=== PATIENT | female | born 1945 | race Caucasian/White ===

== ENCOUNTER 2017-08-07 20:39 | Emergency (ER) | payer MEDICARE, BC ==
[~2017-08-07] VITALS: Ht 142.2 cm; Wt 62.2 kg
[~2017-08-07 20:39] MED LIST: CALCIUM 500+D500 + PO; HYDROXYCHLOR200 MG PO; LIPITOR20 MG PO; LISINOPRIL40 MG PO; MAXZIDE-25MG1 COMBO PO; PREVACID30 M1 PO; SIMVASTATIN20 MG PO; TENORMIN50 MG PO
[2017-08-07] MEDS ORDERED: XANAX XR0.5 MG PO (20:55)
[2017-08-07] MEDS ORDERED: DELTASONE20 MG PO (21:11)
[2017-08-07 22:10] VITALS: BP 180/92
== END 2017-08-07 22:10 | disposition home or self-care (01) ==
LOC: ED 20:39
DX: L50.0 Allergic urticaria (principal); T78.49XA Other allergy, initial encounter

== ENCOUNTER 2018-08-30 07:00 | Day surgery (SDC) | payer MEDICARE, BC ==
[~2018-08-30] VITALS: Ht 142.2 cm; Wt 62.1 kg
[~2018-08-30 07:00] MED LIST changes: +AMLODIPINE5 MG PO; +CETIRIZINE10 MG PO; +CLONIDINE0.1 MG PO; +COLESTID1 GM PO; +DELTASONE20 MG PO; +HYDROXYCHLOR200 M1 PO; +LOPRESSOR50 M1 PO; +VITAMIN D50000 UNIT PO; +XANAX XR0.5 MG PO; +ZOCOR20 M1 PO
[2018-08-30] MEDS ORDERED: REGLAN10 MG PO (09:27)
[2018-08-30] MEDS ORDERED: PROTONIX40 M2 PO (09:27)
[2018-08-30 09:42] VITALS: BP 188/74
== END 2018-08-30 10:05 | disposition home or self-care (01) ==
LOC: ENDO 07:00 → ORM 08:30 → ENDO 08:30
PROVIDERS: ATTEND Surgery
PROC: 0DJ08ZZ Inspection of Upper Intestinal Tract, Via Natural or Artificial Opening Endoscopic (ICD-10-PCS; principal; 2018-08-30)
DX: K31.84 Gastroparesis (principal)

== ENCOUNTER 2018-09-06 07:13 | Day surgery (SDC) | payer MEDICARE, BC ==
[~2018-09-06] VITALS: Ht 142.2 cm; Wt 59.9 kg
[~2018-09-06 07:13] MED LIST changes: +PROTONIX40 M2 PO; +REGLAN10 MG PO
[2018-09-06 09:57] VITALS: BP 180/70
[2018-09-06] MEDS ORDERED: REGLAN10 MG PO (10:01)
== END 2018-09-06 10:24 | disposition home or self-care (01) ==
LOC: ENDO 07:13 → ORM 08:40 → ENDO 10:24 → ORM 11:00
PROVIDERS: ATTEND Surgery
PROC: 0DJ08ZZ Inspection of Upper Intestinal Tract, Via Natural or Artificial Opening Endoscopic (ICD-10-PCS; principal; 2018-09-06)
DX: K31.84 Gastroparesis (principal); K44.9 Diaphragmatic hernia without obstruction or gangrene; K58.9 Irritable bowel syndrome, unspecified

== ENCOUNTER 2018-12-06 19:42 | Emergency (ER) | payer MEDICARE, BC ==
[~2018-12-06] VITALS: Ht 142.2 cm; Wt 68.0 kg
[2018-12-06] MEDS ORDERED: PREDNISONE50 MG PO (20:08)
[2018-12-06 20:23] VITALS: BP 178/83
== END 2018-12-06 20:35 | disposition home or self-care (01) ==
LOC: ED 19:42
DX: L56.8 Other specified acute skin changes due to ultraviolet radiation (principal); T36.4X5A Adverse effect of tetracyclines, initial encounter; I12.9 Hypertensive chronic kidney disease with stage 1 through stage 4 chronic kidney disease, or unspecified chronic kidney disease; N18.3 Chronic kidney disease, stage 3 (moderate)

== ENCOUNTER 2020-07-29 08:45 | Inpatient (IN) | payer MEDICARE, BC ==
[~2020-07-29] VITALS: Ht 142.2 cm; Wt 63.0 kg
[~2020-07-29 08:45] MED LIST changes: +PREDNISONE50 MG PO
[2020-07-29] MEDS ORDERED: FUROSEMIDE20 MG PO (09:05)
[2020-07-29] MEDS ORDERED: HYDROXYCHLOR200 M1 PO (09:05)
[2020-07-29] MEDS ORDERED: BIOTIN5 MG PO (09:07)
[2020-07-29] MEDS ORDERED: MULTI VIT PO (09:07)
[2020-07-29 09:45] LABS: ALBUMIN 3.6 g/dL (3.2-5.0); BILIRUBIN, TOTAL 0.6 mg/dL (0.0-1.4); CREATININE 1.6 mg/dL (0.5-1.0); IMMATURE GRANULOCYTES 0.8 % (0.0-5.0); MEAN CELL VOLUME 87.8 fL CALC (80.0-100.0); NEUT# 12.82 thou/uL (2.00-7.15); RED BLOOD COUNT 3.93 mill/uL (4.20-5.60); RED CELL DISTRI WIDTH 13.6 % (11.5-15.5); TOTAL PROTEIN 6.6 g/dL (6.3-8.2)
[2020-07-29 09:47] LABS: HEMATOCRIT 34.5 % (37.0-47.0); HEMOGLOBIN 11.4 g/dl (12.0-16.0)
[2020-07-29 10:16] LABS: URINE BILIRUBIN - DIPSTICK NEGATIVE (NEGATIVE); URINE BLOOD DIPSTICK LARGE (NEGATIVE); URINE COLOR YELLOW; URINE GLUCOSE - DIPSTICK NEGATIVE (NEGATIVE); URINE KETONE NEGATIVE (NEGATIVE); URINE PROTEIN - DIPSTICK 100 mg/dL (NEG-TRACE); URINE UROBILINOGEN - DIPSTICK 0.2 E.U./dL (0.2)
[2020-07-29 10:27] LABS: URINE BACTERIA MANY hpf; URINE EPITHELIAL CELLS MODERATE EPI/hpf (0-FEW); URINE LEUK ESTERASE SMALL (NEGATIVE); URINE NITRITE - DIPSTICK POSITIVE (Negative); URINE RBC 25-50 RBC/hpf (0-5)
[2020-07-29] MEDS ORDERED: ATENOLOL50 MG PO (11:14)
[2020-07-29 12:41] VITALS: BP 116/51
[2020-07-29 15:20] VITALS: BP 102/52
[2020-07-29 19:00] VITALS: BP 153/59
[2020-07-30] VITALS (7 sets, daily range): BP systolic 118–169; BP diastolic 51–78
[2020-07-30 05:46] LABS: HEMATOCRIT 34.1 % (37.0-47.0); HEMOGLOBIN 10.6 g/dl (12.0-16.0); MEAN CELL VOLUME 90.9 fL CALC (80.0-100.0); MEAN CORPUSCULAR HGB 28.3 pG CALC (26.0-32.0); MEAN CORPUSCULAR HGB CONC 31.1 g/dL CAL (32.0-36.0); RED BLOOD COUNT 3.75 mill/uL (4.20-5.60); RED CELL DISTRI WIDTH 13.8 % (11.5-15.5)
[2020-07-30 06:11] LABS: CREATININE 1.2 mg/dL (0.5-1.0); MAGNESIUM 2.3 mg/dL (1.6-2.3); POTASSIUM 4.3 mmol/l (3.5-5.1)
[2020-07-31] VITALS (13 sets, daily range): BP systolic 97–135; BP diastolic 47–65
[2020-07-31 05:55] LABS: IMMATURE GRANULOCYTES 1.1 % (0.0-5.0); MEAN CELL VOLUME 91.7 fL CALC (80.0-100.0); MEAN CORPUSCULAR HGB 28.7 pG CALC (26.0-32.0); MEAN CORPUSCULAR HGB CONC 31.3 g/dL CAL (32.0-36.0); NEUT# 14.23 thou/uL (2.00-7.15); RED BLOOD COUNT 4.57 mill/uL (4.20-5.60); RED CELL DISTRI WIDTH 14.2 % (11.5-15.5)
[2020-07-31 05:59] LABS: HEMATOCRIT 41.9 % (37.0-47.0); HEMOGLOBIN 13.1 g/dl (12.0-16.0)
[2020-07-31 06:02] LABS: ALBUMIN 3.6 g/dL (3.2-5.0); ANION GAP 18 (6-22 (CALC)); BILIRUBIN, TOTAL 0.5 mg/dL (0.0-1.4); BUN 14 mg/dL (8-23); BUN/CREATININE RATIO 15 (12-20 (CALC)); CARBON DIOXIDE 21 mmol/l (22-30); CHLORIDE 105 mmol/l (95-108); GFR 54 ML/MIN (>=60 (CALC)); GFR FOR AFR.AMER. > 60 ML/MIN (>=60 (CALC)); POTASSIUM 4.1 mmol/l (3.5-5.1); SODIUM 140 mmol/l (137-146); TOTAL PROTEIN 6.7 g/dL (6.3-8.2)
[2020-07-31 06:03] LABS: ALKALINE PHOSPHATASE 150 u/l (38-126); SGOT/AST 59 u/l (9-36)
[2020-08-01] VITALS (12 sets, daily range): BP systolic 103–150; BP diastolic 51–74
[2020-08-01 05:33] LABS: MEAN CELL VOLUME 88.1 fL CALC (80.0-100.0); MEAN CORPUSCULAR HGB 28.5 pG CALC (26.0-32.0); MEAN CORPUSCULAR HGB CONC 32.3 g/dL CAL (32.0-36.0); RED BLOOD COUNT 3.62 mill/uL (4.20-5.60)
[2020-08-01 05:46] LABS: HEMATOCRIT 31.9 % (37.0-47.0); HEMOGLOBIN 10.3 g/dl (12.0-16.0)
[2020-08-01 05:50] LABS: ANION GAP 9 (6-22 (CALC)); BUN 12 mg/dL (8-23); BUN/CREATININE RATIO 13 (12-20 (CALC)); CARBON DIOXIDE 28 mmol/l (22-30); CHLORIDE 101 mmol/l (95-108); CREATININE 0.9 mg/dL (0.5-1.0); GFR > 60 ML/MIN (>=60 (CALC)); GFR FOR AFR.AMER. > 60 ML/MIN (>=60 (CALC)); POTASSIUM 3.6 mmol/l (3.5-5.1); SODIUM 134 mmol/l (137-146)
[2020-08-02 00:02] VITALS: BP 136/62
[2020-08-02 04:00] VITALS: BP 140/66
[2020-08-02 07:20] VITALS: BP 135/72
[2020-08-02 10:30] VITALS: BP 125/64
[2020-08-02] MEDS ORDERED: CIPROFLOXACN500 MG PO (11:17)
== END 2020-08-02 12:55 | disposition home or self-care (01) | DRG 871 ==
LOC: ED 08:45 → ED-I 09:50 → ED 10:30 → MS2 10:31 → ICU 07-31 05:00 → MS2 08-01 13:49
PROVIDERS: Family Medicine; Nurse Practitioner; ADMIT Internal Medicine; ATTEND Internal Medicine
PROC: 5A09357 Assistance with Respiratory Ventilation, Less than 24 Consecutive Hours, Continuous Positive Airway Pressure (ICD-10-PCS; principal; 2020-07-31)
DX: A41.51 Sepsis due to Escherichia coli [E. coli] (principal); J18.9 Pneumonia, unspecified organism; N39.0 Urinary tract infection, site not specified; E87.1 Hypo-osmolality and hyponatremia; I13.0 Hypertensive heart and chronic kidney disease with heart failure and stage 1 through stage 4 chronic kidney disease, or unspecified chronic kidney disease; R09.02 Hypoxemia; Z96.651 Presence of right artificial knee joint; I50.9 Heart failure, unspecified; N18.30 Chronic kidney disease, stage 3 unspecified; M12.30 Palindromic rheumatism, unspecified site; K31.84 Gastroparesis; E78.5 Hyperlipidemia, unspecified; F41.9 Anxiety disorder, unspecified; M81.0 Age-related osteoporosis without current pathological fracture; B96.20 Unspecified Escherichia coli [E. coli] as the cause of diseases classified elsewhere; Z20.822 Contact with and (suspected) exposure to COVID-19; Z79.899 Other long term (current) drug therapy; Z88.1 Allergy status to other antibiotic agents; Z88.2 Allergy status to sulfonamides; Z96.642 Presence of left artificial hip joint
CPT/HCPCS: G0378

== ENCOUNTER 2022-07-04 13:49 | Emergency (ER) | payer MEDICARE, BC ==
[~2022-07-04] VITALS: Ht 142.2 cm; Wt 60.0 kg
[~2022-07-04 13:49] MED LIST changes: +ATENOLOL50 MG PO; +BIOTIN5 MG PO; +CIPROFLOXACN500 MG PO; +FUROSEMIDE20 MG PO; +MULTI VIT PO
[2022-07-04 13:59] VITALS: BP 144/66
[2022-07-04 14:23] LABS: HEMATOCRIT 40.3 % (37.0-47.0); HEMOGLOBIN 13.3 g/dl (12.0-16.0); IMMATURE GRANULOCYTES 0.1 % (0.0-5.0); MEAN CELL VOLUME 90.4 fL CALC (80.0-100.0); MEAN CORPUSCULAR HGB 29.8 pG CALC (26.0-32.0); NEUT# 4.67 thou/uL (2.00-7.15); RED BLOOD COUNT 4.46 mill/uL (4.20-5.60); RED CELL DISTRI WIDTH 12.9 % (11.5-15.5)
[2022-07-04 14:30] LABS: ALBUMIN 4.7 g/dL (3.2-5.0); BILIRUBIN, TOTAL 0.5 mg/dL (0.0-1.4); CREATININE 1.9 mg/dL (0.5-1.0); POTASSIUM 3.9 mmol/l (3.5-5.1); TOTAL PROTEIN 8.4 g/dL (6.3-8.2)
[2022-07-04 15:11] VITALS: BP 144/66
== END 2022-07-04 15:33 | disposition home or self-care (01) ==
LOC: ED 13:49
PROVIDERS: Family Medicine
DX: S00.03XA Contusion of scalp, initial encounter (principal); I12.9 Hypertensive chronic kidney disease with stage 1 through stage 4 chronic kidney disease, or unspecified chronic kidney disease; N18.30 Chronic kidney disease, stage 3 unspecified; M12.30 Palindromic rheumatism, unspecified site; W19.XXXA Unspecified fall, initial encounter; Y92.009 Unspecified place in unspecified non-institutional (private) residence as the place of occurrence of the external cause

== ENCOUNTER 2022-11-30 15:34 | Inpatient (IN) | payer MEDICARE, BC ==
[2022-11-30] VITALS (15 sets, daily range): BP systolic 84–136; BP diastolic 49–81
[~2022-11-30] VITALS: Ht 142.2 cm; Wt 63.0 kg
[2022-11-30 16:27] LABS: BASO% 1.3 % (0-3); EOS% 8.9 % (0-8); IMMATURE GRANULOCYTES 0.4 % (0.0-5.0); LYMPH% 24.9 % (15-41); MEAN CELL VOLUME 86.8 fL CALC (80.0-100.0); MEAN CORPUSCULAR HGB 27.9 pG CALC (26.0-32.0); MEAN CORPUSCULAR HGB CONC 32.1 g/dL CAL (32.0-36.0); MONO% 14.4 % (2-13); NEUT# 4.46 thou/uL (2.00-7.15); NEUT% 50.1 % (42-76); RED BLOOD COUNT 3.41 mill/uL (4.20-5.60); RED CELL DISTRI WIDTH 14.3 % (11.5-15.5)
[2022-11-30 16:31] LABS: HEMATOCRIT 29.6 % (37.0-47.0); HEMOGLOBIN 9.5 g/dl (12.0-16.0)
[2022-11-30 16:37] LABS: ALBUMIN 3.4 g/dL (3.2-5.0); CREATININE 1.5 mg/dL (0.5-1.0); POTASSIUM 4.1 mmol/l (3.5-5.1); TOTAL PROTEIN 6.3 g/dL (6.3-8.2)
[2022-11-30 16:38] LABS: BILIRUBIN, TOTAL 0.4 mg/dL (0.02-1.3)
[2022-11-30 18:04] LABS: URINE BLOOD DIPSTICK NEGATIVE (NEGATIVE); URINE COLOR YELLOW; URINE GLUCOSE - DIPSTICK NEGATIVE (NEGATIVE); URINE KETONE NEGATIVE (NEGATIVE); URINE LEUK ESTERASE NEGATIVE (NEGATIVE); URINE PROTEIN - DIPSTICK NEGATIVE (NEG-TRACE); URINE UROBILINOGEN - DIPSTICK 0.2 E.U./dL (0.2)
[2022-11-30 18:05] LABS: URINE NITRITE - DIPSTICK NEGATIVE (Negative)
[2022-11-30] MEDS ORDERED: NIFEDIPINE60 MG PO (22:16)
[2022-11-30] MEDS ORDERED: HYDRALAZINE HYD25 MG PO (22:17)
[2022-11-30] MEDS ORDERED: CYMBALTA30 MG PO (22:18)
[2022-11-30] MEDS ORDERED: SIMVASTATIN20 M1 PO (22:19)
[2022-12-01 00:02] VITALS: BP 145/55
[2022-12-01 04:38] VITALS: BP 138/63
[2022-12-01 06:49] VITALS: BP 150/54
[2022-12-01 09:23] LABS: BASO% 0.9 % (0-3); EOS% 13.5 % (0-8); HEMATOCRIT 31.3 % (37.0-47.0); IMMATURE GRANULOCYTES 0.6 % (0.0-5.0); LYMPH% 18.5 % (15-41); MEAN CELL VOLUME 87.9 fL CALC (80.0-100.0); MEAN CORPUSCULAR HGB 28.1 pG CALC (26.0-32.0); MEAN CORPUSCULAR HGB CONC 31.9 g/dL CAL (32.0-36.0); MONO% 13.3 % (2-13); NEUT# 3.52 thou/uL (2.00-7.15); NEUT% 53.2 % (42-76); RED BLOOD COUNT 3.56 mill/uL (4.20-5.60); RED CELL DISTRI WIDTH 14.2 % (11.5-15.5)
[2022-12-01 09:41] LABS: ALBUMIN 3.2 g/dL (3.2-5.0); CREATININE 1.3 mg/dL (0.5-1.0); TOTAL PROTEIN 5.9 g/dL (6.3-8.2)
[2022-12-01 09:42] LABS: BILIRUBIN, TOTAL 0.2 mg/dL (0.02-1.3)
[2022-12-01 10:23] VITALS: BP 152/58
[2022-12-01] MEDS ORDERED: FERROUS SULFAT325 MG PO (10:25)
[2022-12-01] MEDS ORDERED: COLESTID1 GM PO (10:27)
[2022-12-01 11:58] LABS: URINE BILIRUBIN - DIPSTICK NEGATIVE (NEGATIVE)
[2022-12-01 16:13] VITALS: BP 148/68
[2022-12-01 20:39] VITALS: BP 125/54
[2022-12-02 00:08] VITALS: BP 125/60
[2022-12-02 03:40] VITALS: BP 127/62
[2022-12-02 05:45] LABS: ALBUMIN 3.5 g/dL (3.2-5.0); BILIRUBIN, TOTAL 0.2 mg/dL (0.02-1.3); CREATININE 1.2 mg/dL (0.5-1.0); MAGNESIUM 2.1 mg/dL (1.6-2.3); TOTAL PROTEIN 6.5 g/dL (6.3-8.2)
[2022-12-02 05:47] LABS: POTASSIUM 4.1 mmol/l (3.5-5.1)
[2022-12-02 05:57] LABS: BASO% 1.4 % (0-3); EOS% 13.6 % (0-8); HEMATOCRIT 33.8 % (37.0-47.0); HEMOGLOBIN 10.7 g/dl (12.0-16.0); IMMATURE GRANULOCYTES 0.7 % (0.0-5.0); LYMPH% 24.7 % (15-41); MEAN CELL VOLUME 88.5 fL CALC (80.0-100.0); MEAN CORPUSCULAR HGB CONC 31.7 g/dL CAL (32.0-36.0); MONO% 11.5 % (2-13); NEUT# 4.1 thou/uL (2.00-7.15); NEUT% 48.1 % (42-76); RED BLOOD COUNT 3.82 mill/uL (4.20-5.60)
[2022-12-02 06:58] VITALS: BP 147/67
[2022-12-02 11:05] VITALS: BP 146/64
[2022-12-02] MEDS ORDERED: ASPIRIN REGULA325 M1 PO (11:06)
[2022-12-02] MEDS ORDERED: DOXYCYCLINE100 MG PO (11:10)
[2022-12-02] MEDS ORDERED: LASIX 20 MG TAB20 MG PO (11:11)
== END 2022-12-02 14:19 | disposition home health service (06) | DRG 193 ==
LOC: ED 15:34 → ED-I 18:51 → ED 19:05 → MS2 19:06
PROVIDERS: Family Medicine; Nurse Practitioner Family; ADMIT Internal Medicine; ATTEND Internal Medicine
DX: J18.9 Pneumonia, unspecified organism (principal); I50.31 Acute diastolic (congestive) heart failure; I13.0 Hypertensive heart and chronic kidney disease with heart failure and stage 1 through stage 4 chronic kidney disease, or unspecified chronic kidney disease; N18.30 Chronic kidney disease, stage 3 unspecified; I08.3 Combined rheumatic disorders of mitral, aortic and tricuspid valves; E78.5 Hyperlipidemia, unspecified; I49.3 Ventricular premature depolarization; I49.1 Atrial premature depolarization; I87.2 Venous insufficiency (chronic) (peripheral); F41.9 Anxiety disorder, unspecified; K31.84 Gastroparesis; M12.30 Palindromic rheumatism, unspecified site; Z96.642 Presence of left artificial hip joint; Z96.611 Presence of right artificial shoulder joint; Z20.822 Contact with and (suspected) exposure to COVID-19
CPT/HCPCS: G0378; J1650; Q9967

== ENCOUNTER 2024-05-05 11:08 | Emergency (ER) | payer MEDICARE, BC ==
[~2024-05-05] VITALS: Ht 142.2 cm; Wt 63.5 kg
[~2024-05-05 11:08] MED LIST changes: +ASPIRIN REGULA325 M1 PO; +CYMBALTA30 MG PO; +DOXYCYCLINE100 MG PO; +FERROUS SULFAT325 MG PO; +HYDRALAZINE HYD25 MG PO; +LASIX 20 MG TAB20 MG PO; +NIFEDIPINE60 MG PO; +SIMVASTATIN20 M1 PO
[2024-05-05 12:10] VITALS: BP 161/75
[2024-05-05 12:15] VITALS: BP 157/76
[2024-05-05 12:31] VITALS: BP 150/65
[2024-05-05 12:45] VITALS: BP 153/75
[2024-05-05 13:00] VITALS: BP 153/75
== END 2024-05-05 13:06 | disposition home or self-care (01) ==
LOC: ED 11:08
DX: T88.1XXA Other complications following immunization, not elsewhere classified, initial encounter (principal); R22.32 Localized swelling, mass and lump, left upper limb; T50.B95A Adverse effect of other viral vaccines, initial encounter; I12.9 Hypertensive chronic kidney disease with stage 1 through stage 4 chronic kidney disease, or unspecified chronic kidney disease; N18.30 Chronic kidney disease, stage 3 unspecified; K31.84 Gastroparesis; M12.30 Palindromic rheumatism, unspecified site; Z96.611 Presence of right artificial shoulder joint; Z96.641 Presence of right artificial hip joint

== ENCOUNTER 2024-10-13 09:37 | Emergency (ER) | payer MEDICARE, BC ==
[2024-10-13] VITALS (9 sets, daily range): BP systolic 83–148; BP diastolic 52–102
[~2024-10-13] VITALS: Ht 142.2 cm; Wt 70.0 kg
[2024-10-13] MEDS ORDERED: AMOXICILLIN500 M2 PO (11:12)
== END 2024-10-13 11:22 | disposition home or self-care (01) ==
LOC: ED 09:37
DX: J44.89 Other specified chronic obstructive pulmonary disease (principal); I12.9 Hypertensive chronic kidney disease with stage 1 through stage 4 chronic kidney disease, or unspecified chronic kidney disease; N18.30 Chronic kidney disease, stage 3 unspecified; Z20.822 Contact with and (suspected) exposure to COVID-19